=== PATIENT | male | born 1990 | race African-American/Black ===

== ENCOUNTER 2018-09-07 07:30 | Emergency (ER) | payer OTHER ==
[~2018-09-07] VITALS: Ht 172.7 cm; Wt 76.2 kg
[2018-09-07 07:35] VITALS: BP 134/75; PULSE 67; RESP 19; Ht 172.7 cm; Wt 76.2 kg
[2018-09-07] MEDS ORDERED: SULF1TAB31 PO (07:54)
[2018-09-07] MEDS ORDERED: BACITRACIN 0.9 GM OINT ONE (08:08)
--- NOTE | 2018-09-07 08:14 | ERD ---
ER Documentation Chief Complaint Chief Complaint rt arm abcess HPI 28-year-old male presenting with abscess to his right arm. Patient states is been there for the last 2 days. Patient was seen in urgent care yesterday and given antibiotics but did not fill the prescription. Patient said he wanted to be evaluated and have a potential drainage of the area. Denies other medical problems. Denies fevers. NKDA. Surgical history denies. Social history denies ROS All systems reviewed and are negative except as per history of present illness. Medications Home Meds Active Scripts Sulfamethoxazole/Trimethoprim* (Bactrim Ds* Tablet) 1 Each Tablet, 1 TAB PO BID, #14 TAB Prov:BONNIE RIBEIRO PA-C 09/07/18 Allergies Allergies: Coded Allergies: No Known Allergy (Unverified , 09/07/18) PMhx/Soc Medical and Surgical Hx: pt denies Surgical Hx Hx Miscellaneous Medical Probl: Yes (fractured right pinky) Hx Alcohol Use: Yes Hx Substance Use: Yes (marijuana) Hx Tobacco Use: Yes Smoking Status: Current every day smoker FmHx Family History: No diabetes, No coronary disease, No other Physical Exam Vitals Vital Signs Date Temp Pulse Resp B/P (MAP) Pulse Ox O2 O2 Flow FiO2 Time Delivery Rate 09/07/18 97.7 67 19 134/75 99 07:35 (94) Physical Exam GENERAL: The patient is well-appearing, well-nourished, in no acute distress CHEST: Clear to auscultation bilaterally. There are no rales, wheezes or rhonchi. HEART: Regular rate and rhythm. No murmurs, clicks, rubs or gallops. EXTREMITIES: Equal pulses bilaterally. There is no peripheral clubbing, cyanosis or edema. No focal swelling or erythema. Full range of motion. Grossly neurovascularly intact. NEUROLOGIC: Alert and oriented. Cranial nerves II through XII intact. Motor strength in all 4 extremities with 5 out of 5 strength. Sensation grossly intact. SKIN: Erythematous nodule noted adjacent to the right elbow. Open and draining with purulence. Results 24 hrs Current Medications Medications Dose Sig/Lorena Start Time Status Last (Trade) Ordered Route PRN Stop Time Admin Dose Reason Admin Bacitracin 1 applic STK-MED 09/07/18 DC (Bacitracin ONCE .ROUTE 08:08 09/07/18 Oint (Ud)) 08:09 Procedures/MDM ER course: Area cleaned and purulence extracted. Bandage applied. MDM: 28-year-old male presenting with abscess. Patient did have drainage in the ER which I removed. Patient will be treated with additional antibiotics and told to fill his Keflex that he was prescribed yesterday. Patient is told if symptoms change or worsen to return immediately to the ER. I have low suspicion for septic joint. Patient is discharged with strict ER precautions. All questions answered at discharge Departure Diagnosis: Primary Impression: Abscess Condition: Stable Patient Instructions: Abscess, Incision And Drainage Referrals: [facility] YOU HAVE RECEIVED A MEDICAL SCREENING EXAM AND THE RESULTS INDICATE THAT YOU DO NOT HAVE A CONDITION THAT REQUIRES URGENT TREATMENT IN THE EMERGENCY DEPARTMENT. FURTHER EVALUATION AND TREATMENT OF YOUR CONDITION CAN WAIT UNTIL YOU ARE SEEN IN YOUR DOCTORS OFFICE WITHIN THE NEXT 1-2 DAYS. IT IS YOUR RESPONSIBILITY TO MAKE AN APPOINTMENT FOR FOLOW-UP CARE. IF YOU HAVE A PRIMARY DOCTOR --you should call your primary doctor and schedule an appointment IF YOU DO NOT HAVE A PRIMARY DOCTOR YOU CAN CALL OUR PHYSICIAN REFERRAL HOTLINE AT IF YOU CAN NOT AFFORD TO SEE A PHYSICIAN YOU CAN CHOSE FROM THE FOLLOWING [facility] [id number] [facility]. [facility] [address] [facility] [facility] [address] [facility] [facility] [address] [facility]. [facility] [address] [facility]. [facility]. [address] Additional Instructions: FOLLOW UP WITH YOUR PRIMARY CARE PHYSICIAN TOMORROW.Return to this facility if you are not improving as expected. BONNIE RIBEIRO PA-C Sep 07, 2018 08:14
== END 2018-09-07 08:11 | disposition home or self-care (01) ==
LOC: FTE 07:30
DX: L02.413 Cutaneous abscess of right upper limb (principal); F17.210 Nicotine dependence, cigarettes, uncomplicated
CPT/HCPCS: 10060; Z7502; Z7610